=== PATIENT | male | born 1970 | race Two or more races ===

== ENCOUNTER 2022-02-28 16:04 | Emergency (ER) | payer OTHER ==
[~2022-02-28] VITALS: Ht 175.3 cm; Wt 95.3 kg
[~2022-02-28 16:04] MED LIST: ALLOPURINOL100 MG; CELEBREX50 MG PO; COLCHICINE0.6 MG PO
[2022-02-28] MEDS ORDERED: TIROSINT25 MCG (17:20)
[2022-02-28] MEDS ORDERED: ZITHROMAX500 MG PO (21:22)
== END 2022-02-28 22:14 | disposition home or self-care (01) ==
LOC: ER 16:04
DX: B34.9 Viral infection, unspecified (principal); Z20.822 Contact with and (suspected) exposure to COVID-19